=== PATIENT | male | born 1995 | race African-American/Black ===

== ENCOUNTER 2016-11-10 12:58 | Emergency (ER) | payer BC, OTHER ==
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
== END 2016-11-10 15:24 | disposition home or self-care (01) ==
LOC: SCSER 12:58
DX: S91.311A Laceration without foreign body, right foot, initial encounter (principal); L08.9 Local infection of the skin and subcutaneous tissue, unspecified; G47.30 Sleep apnea, unspecified; F17.210 Nicotine dependence, cigarettes, uncomplicated; F17.290 Nicotine dependence, other tobacco product, uncomplicated; V89.2XXA Person injured in unspecified motor-vehicle accident, traffic, initial encounter

== ENCOUNTER 2016-11-13 13:09 | Emergency (ER) | payer BC | END 2016-11-13 13:40 | disposition home or self-care (01) | LOC: SCSER 13:09 | DX: S91.311A Laceration without foreign body, right foot, initial encounter (principal); L08.9 Local infection of the skin and subcutaneous tissue, unspecified; F17.210 Nicotine dependence, cigarettes, uncomplicated; Z79.899 Other long term (current) drug therapy; X58.XXXA Exposure to other specified factors, initial encounter | CPT/HCPCS: 99283 ==